=== PATIENT | male | born 1970 | race Caucasian/White ===

== ENCOUNTER 2023-05-20 07:47 | Emergency (ER) | payer MEDICAID ==
[~2023-05-20] VITALS: Ht 177.8 cm; Wt 89.1 kg
[2023-05-20 07:50] VITALS: TEMP 98.3
[2023-05-20 08:09] LABS: APPEARANCE,URINE CLEAR (CLEAR); BILIRUBIN,URINE NEGATIVE (NEGATIVE); COLOR,URINE LIGHT YELLOW (YELLOW); GLUCOSE, URINE (UA) NEGATIVE (NEGATIVE); KETONES,URINE NEGATIVE (NEGATIVE); LEUKOCYTE ESTERASE ,URINE NEGATIVE (NEGATIVE); NITRATE,URINE NEGATIVE (NEGATIVE); OCCULT BLOOD,URINE NEGATIVE (NEGATIVE); PH,URINE 5.5 (5.0-8.0); PROTEIN,URINE NEGATIVE (NEGATIVE); SPECIFIC GRAVITIY, URINE 1.022 (1.003-1.030); UROBILINOGEN,URINE <=1.0 mg/dL (<=1.0)
[2023-05-20 09:25] VITALS: BP 125/87; PULSE 72; RESP 18
== END 2023-05-20 09:56 | disposition home or self-care (01) ==
LOC: EMS 07:47
DX: R31.9 Hematuria, unspecified (principal); Z98.890 Other specified postprocedural states
CPT/HCPCS: 81003; 99283

== ENCOUNTER 2023-07-09 13:06 | Emergency (ER) | payer MEDICAID ==
[~2023-07-09] VITALS: Ht 175.3 cm; Wt 88.2 kg
[2023-07-09 13:12] VITALS: TEMP 96.8
[2023-07-09 13:39] LABS: APPEARANCE,URINE TURBID (CLEAR); BILIRUBIN,URINE NEGATIVE (NEGATIVE); GLUCOSE, URINE (UA) NEGATIVE (NEGATIVE); KETONES,URINE NEGATIVE (NEGATIVE); LEUKOCYTE ESTERASE ,URINE TRACE (NEGATIVE); NITRATE,URINE NEGATIVE (NEGATIVE); OCCULT BLOOD,URINE LARGE (NEGATIVE); PROTEIN,URINE 100-200,SEE CONFIRM mg/dL (NEGATIVE); SPECIFIC GRAVITIY, URINE 1.025 (1.003-1.030); UROBILINOGEN,URINE <=1.0 mg/dL (<=1.0)
[2023-07-09 13:44] LABS: COLOR,URINE DARK RED (YELLOW)
[2023-07-09 13:47] LABS: RBC,URINE Full Field /HPF (0-2); SULFOSALICYLIC ACID,URINE 2+ (Negative); WBC,URINE 0-2 /HPF (0-5)
[2023-07-09 13:48] LABS: BACTERIA,URINE Many /HPF (None Seen)
[2023-07-09] MEDS ORDERED: CEPH-558 PO (14:46)
[2023-07-09] MEDS: CEPHALEXIN MONOHYDRATE 500 MG CAPSULE PO ONE (16:25)
[2023-07-09 16:26] VITALS: BP 138/74; PULSE 72; RESP 16
== END 2023-07-09 16:30 | disposition home or self-care (01) ==
LOC: EMS 13:14
DX: N39.0 Urinary tract infection, site not specified (principal); R31.9 Hematuria, unspecified
CPT/HCPCS: 81001; 81002; 87086; 87186; 99283